=== PATIENT | female | born 1980 | race Caucasian/White ===

== ENCOUNTER 2019-02-11 18:28 | Emergency (ER) | payer BC ==
[~2019-02-11] VITALS: Ht 175.3 cm; Wt 127.3 kg
[2019-02-11] MEDS ORDERED: NIZORAL CREAM15 GM TP (18:40)
[2019-02-11 18:41] VITALS: BP 137/80; PULSE 99; TEMP 98.2
[2019-02-11] MEDS ORDERED: PREDNISONE20 MG PO (18:56)
== END 2019-02-11 19:10 | disposition home or self-care (01) ==
LOC: COL.ER 18:28
DX: R21 Rash and other nonspecific skin eruption (principal)